=== PATIENT | female | born 1980 | race Caucasian/White ===

== ENCOUNTER → 2016-11-07 | Outpatient (CLI) | payer BC ==
--- NOTE | 2016-11-07 09:35 | REP ---
LEFT FOOT, FOUR VIEWS: HISTORY: Pain. There is no acute fracture or dislocation. There is fusion of the proximal and intermediate phalanges of the second digit. The joint spaces are normal in appearance. IMPRESSION: There is no acute fracture or dislocation. Signed by Deion Grove MD 11/07/2016 09:49 A
== END ==
LOC: M WUC 08:53
PROVIDERS: ATTEND Physician Assistant
DX: M25.579 Pain in unspecified ankle and joints of unspecified foot (principal)